=== PATIENT | male | born 1975 | race Caucasian/White ===

== ENCOUNTER 2022-07-08 09:52 | Emergency (ER) | payer SELFPAY ==
[2022-07-08] MEDS ORDERED: ENDOCET 5-3251 EACH PO (12:22)
== END 2022-07-08 12:38 | disposition home or self-care (01) ==
LOC: ER1 09:52
DX: S82.832A Other fracture of upper and lower end of left fibula, initial encounter for closed fracture (principal); Z88.5 Allergy status to narcotic agent; W01.10XA Fall on same level from slipping, tripping and stumbling with subsequent striking against unspecified object, initial encounter; Y92.89 Other specified places as the place of occurrence of the external cause; Y99.0 Civilian activity done for income or pay
CPT/HCPCS: 29530; 73564; 73590; 99283